=== PATIENT | female | born 1965 | race Caucasian/White ===

== ENCOUNTER 2020-09-13 09:22 | Emergency (ER) | payer OTHER ==
[~2020-09-13] VITALS: Ht 160 cm; Wt 72.6 kg
[2020-09-13] MEDS ORDERED: ACTOS30 MG PO (09:32)
[2020-09-13] MEDS ORDERED: FENOFIBRATE150 MG PO (09:32)
[2020-09-13] MEDS ORDERED: JANUMET XR 1001 EACH PO (09:32)
[2020-09-13] MEDS ORDERED: KETO10TA2 PO (11:24)
[2020-09-13] MEDS ORDERED: NORFLEX100MG PO (11:24)
== END 2020-09-13 12:35 | disposition home or self-care (01) ==
LOC: ER 09:22
DX: S50.11XA Contusion of right forearm, initial encounter (principal); S20.213A Contusion of bilateral front wall of thorax, initial encounter; W10.8XXA Fall (on) (from) other stairs and steps, initial encounter; Y93.89 Activity, other specified; Y92.098 Other place in other non-institutional residence as the place of occurrence of the external cause; Y99.8 Other external cause status

== ENCOUNTER 2021-02-11 09:20 | Outpatient (CLI) | payer OTHER ==
[~2021-02-11 09:20] MED LIST: ACTOS30 MG PO; FENOFIBRATE150 MG PO; JANUMET XR 1001 EACH PO; KETO10TA2 PO; NORFLEX100MG PO
== END 2021-02-11 09:24 | disposition home or self-care (01) ==
LOC: PPH VACUNA 09:20
PROVIDERS: ATTEND Emergency Medicine Pediatric Emergency Medicine
DX: Z23 Encounter for immunization (principal)

== ENCOUNTER 2022-06-11 10:39 | Emergency (ER) | payer OTHER ==
[~2022-06-11] VITALS: Ht 160 cm; Wt 63.5 kg
[2022-06-11] MEDS ORDERED: STEGLATRO15 MG PO (10:51)
[2022-06-11] MEDS ORDERED: ATORVASTATIN CA20 MG PO (10:52)
== END 2022-06-11 14:56 | disposition home or self-care (01) ==
LOC: ER 10:39
DX: S62.607A Fracture of unspecified phalanx of left little finger, initial encounter for closed fracture (principal); V00.848A Other accident with standing micro-mobility pedestrian conveyance, initial encounter; Y93.I9 Activity, other involving external motion; Y92.413 State road as the place of occurrence of the external cause

== ENCOUNTER 2022-06-12 08:50 | Outpatient (CLI) | payer OTHER ==
[~2022-06-12 08:50] MED LIST changes: +ATORVASTATIN CA20 MG PO; +STEGLATRO15 MG PO
== END 2022-06-12 09:15 | disposition home or self-care (01) ==
LOC: LAB 08:50
PROVIDERS: ATTEND Orthopaedic Surgery
DX: D64.9 Anemia, unspecified (principal); D68.8 Other specified coagulation defects; N39.0 Urinary tract infection, site not specified; E11.9 Type 2 diabetes mellitus without complications; I10 Essential (primary) hypertension

== ENCOUNTER 2022-06-16 05:48 | Day surgery (SDC) | payer OTHER | END 2022-06-16 12:25 | disposition home or self-care (01) | LOC: CIR.AMB 05:48 | PROVIDERS: ATTEND Orthopaedic Surgery | DX: S62.337A Displaced fracture of neck of fifth metacarpal bone, left hand, initial encounter for closed fracture (principal); E11.9 Type 2 diabetes mellitus without complications; Z79.84 Long term (current) use of oral hypoglycemic drugs; Z20.822 Contact with and (suspected) exposure to COVID-19 ==

== ENCOUNTER 2022-07-09 08:50 | Outpatient (CLI) | payer OTHER | END 2022-07-09 09:00 | disposition home or self-care (01) | LOC: RAD 08:50 | PROVIDERS: ATTEND Orthopaedic Surgery | DX: S62.337D Displaced fracture of neck of fifth metacarpal bone, left hand, subsequent encounter for fracture with routine healing (principal) ==

== ENCOUNTER 2023-03-26 18:38 | Emergency (ER) | payer OTHER ==
[~2023-03-26] VITALS: Ht 160 cm; Wt 56.7 kg
[2023-03-26] MEDS ORDERED: RYBELSUS14 MG PO (18:58)
[2023-03-26] MEDS ORDERED: TRAMADOL HCL50 MG PO (20:11)
== END 2023-03-26 21:15 | disposition home or self-care (01) ==
LOC: ER 18:39
DX: S52.591A Other fractures of lower end of right radius, initial encounter for closed fracture (principal); W18.39XA Other fall on same level, initial encounter; Y93.89 Activity, other specified; Y92.018 Other place in single-family (private) house as the place of occurrence of the external cause; Y99.9 Unspecified external cause status